=== PATIENT | male | born 1995 | race African-American/Black ===

== ENCOUNTER 2017-04-24 09:14 | Emergency (ER) | payer OTHER ==
[~2017-04-24] VITALS: Ht 182.9 cm; Wt 73.5 kg
[2017-04-24 09:24] VITALS: BP 122/69
[2017-04-24] MEDS ORDERED: IBUP200C15 PO (09:27)
--- NOTE | 2017-04-24 09:30 | NUR ---
Patient ambulated to bed 08.
--- NOTE | 2017-04-24 09:41 | NUR ---
21/M c/o lower back for about a week and a half. Denies any injury or trauma. Pt also c/o N/V for the past week. Pt states "It woke me up out of my sleep last night." Also reports diarrhea for the past two months on and off. No vomiting noted while in ED. AOX4, clear speech. Ambulatory with steady gait. Pt found lying supine in bed, no distress noted. VSS.
--- NOTE | 2017-04-24 09:52 | NUR ---
Patient being evaluated by Dr. Waldron at bedside.
[2017-04-24] MEDS ORDERED: NACL 0.9% 1,000 ML IV ONE (10:05)
[2017-04-24] MEDS ORDERED: ONDANSETRON 4 MG/2 ML VIAL IVP ONE (10:05)
[2017-04-24 10:41] LABS: HEMATOCRIT 42.5 % (36-52); HEMOGLOBIN 13.1 g/dL (12.0-18.0); MEAN CORPUSCULAR HEMOGLOBIN 22 pg (27-31); MEAN CORPUSCULAR HGB CONC 31 g/dL (33-37); MEAN CORPUSCULAR VOLUME 72 fL (80-94); PLATELET COUNT (AUTO) 145 K/uL (140-450); RED BLOOD CELL COUNT(AUTO) 5.89 MIL/uL (4.20-6.10); RED CELL DISTRIBUTION WIDTH 14.4 % (11.6-13.7); WHITE BLOOD COUNT (AUTO) 5.9 K/uL (4.8-10.8)
--- NOTE | 2017-04-24 10:59 | NUR ---
Patient appears to be resting comfortably in bed. VSS.
[2017-04-24 11:05] LABS: ANION GAP 8.3 (8-16); CALCIUM 8.5 mg/dL (8.5-10.1); CARBON DIOXIDE 29.6 mmol/L (21-32); CHLORIDE 107 mmol/L (98-107); CREATININE 1.1 mg/dL (0.7-1.3); GFR ARICAN-AMERICAN 107 mL/min (>90); GFR NON ARICAN-AMERICAN 88 mL/min (>90); GLUCOSE 85 mg/dL (74-106); POTASSIUM 3.9 mmol/L (3.5-5.1); SODIUM SERUM 141 mmol/L (136-145); UREA NITROGEN, BLOOD 10 mg/dL (7-18)
[2017-04-24 11:12] LABS: ALANINE AMINOTRANSFERASE 16 U/L (16-63); ALBUMIN 3.7 g/dL (3.4-5.0); ALKALINE PHOSPHATASE 49 U/L (46-116); AMYLASE 54 U/L (25-115); ASPARTATE AMINOTRANSFERASE 12 U/L (15-37); LIPASE 92 U/L (73-393); TOTAL BILIRUBIN 0.8 mg/dL (0.0-1.0); TOTAL PROTEIN, SERUM 7.2 g/dL (6.4-8.2)
[2017-04-24 11:17] LABS: EOSINOPHILS % (MANUAL) 2 % (0-4); LYMPHOCYTES % (MANUAL) 48 % (20-46); MONOCYTES % (MANUAL) 12 % (5-12); NEUTROPHILS % (MANUAL) 38 (43-65)
[2017-04-24 11:18] LABS: PLATELET ESTIMATE ADEQUATE
[2017-04-24 11:21] LABS: ALCOHOL, BLOOD < 3 mg/dL (<3)
--- NOTE | 2017-04-24 11:57 | NUR ---
[facility]
[2017-04-24 12:02] LABS: AMPHETAMINE, URINE NEG. ng/ml (NEG <=1000); BARBITURATE, URINE NEG. ng/ml (NEG <=200); BENZODIAZEPINE, URINE NEG. ng/mL (NEG <=200); CANNABINOID, URINE NEG. ng/mL (NEG <=50); COCAINE, URINE NEG. ng/mL (NEG <=300); OPIATE, URINE NEG. ng/mL (NEG <=2000); PHENCYCLIDINE SCREEN,URINE NEG. ng/mL (NEG <=25)
[2017-04-24 12:04] LABS: APPEARANCE,URINE CLOUDY (CLEAR); BILIRUBIN,URINE NEGATIVE (NEGATIVE); BLOOD, URINE NEGATIVE (NEGATIVE); COLOR,URINE YELLOW (YELLOW); LEUKOCYTE ESTERASE ,URINE NEGATIVE (NEGATIVE); NITRITE, URINE NEGATIVE (NEGATIVE); PROTEIN,URINE NEGATIVE (NEGATIVE); UGLUCOSE NEGATIVE (NEGATIVE)
[2017-04-24 12:24] LABS: RBC,URINE NONE SEEN /HPF (0-5); WBC,URINE NONE SEEN /HPF (0-5)
[2017-04-24 12:25] LABS: BACTERIA,URINE None Seen /HPF (None Seen); SQUAMOUS EPITHELIAL CELL,UR 0-3 (FEW) /LPF (0-3 (FEW)); URINE AMORPHOUS URATE 1+ /HPF (None Seen)
[2017-04-24] MEDS ORDERED: KETOROLAC 30 MG/ML VIAL IVP ONE (13:00)
--- NOTE | 2017-04-24 13:25 | NUR ---
IV removed, catheter intact and site benign. Applied folded 4x4 gauze and tape to stop bleeding.
[2017-04-24 13:27] VITALS: BP 109/74
== END 2017-04-24 13:27 | disposition home or self-care (01) ==
LOC: MED 09:14
DX: K52.9 Noninfective gastroenteritis and colitis, unspecified (principal)
CPT/HCPCS: 36415; 80053; 80305; 81001; 82150; 83690; 85025; 96361; 96374; 96375; 99284; G0482; J1885; J2405; J7030

== ENCOUNTER 2018-01-04 09:13 | Emergency (ER) | payer OTHER ==
[~2018-01-04] VITALS: Ht 185.4 cm; Wt 72.6 kg
[~2018-01-04 09:13] MED LIST: IBUP200C15 PO
[2018-01-04 09:15] VITALS: BP 126/93
--- NOTE | 2018-01-04 09:17 | NUR ---
PT BIB [facility] FOR PREBOOK
--- NOTE | 2018-01-04 09:20 | NUR ---
PATIENT DENIES PAIN/DISCOMFORT. BROUGHT IN BY [facility]. [facility] PREBOOK FOR DUI.DENIES HX:DENIES MEDS . DENIES N/V/D; SKIN IS PINK/WARM/DRY; AAOX4 WITH EVEN AND STEADY GAIT; LUNGS CLEAR BL; HR EVEN AND REGULAR; PT DENIES ANY FEVER, CP, SOB, OR COUGH AT THIS TIME; PATIENT STATES PAIN OF 0/10 AT THIS TIME; VSS;ER MD MADE AWARE OF PT STATUS.
[2018-01-04 09:50] VITALS: BP 126/93
--- NOTE | 2018-01-04 09:50 | NUR ---
Patient discharged with v/s stable. PT IS OK TO PRE-BOOK PER MD, Police with PT to car.
== END 2018-01-04 09:50 ==
LOC: MED 09:13
DX: Z02.89 Encounter for other administrative examinations (principal); Z79.899 Other long term (current) drug therapy
CPT/HCPCS: 99283

== ENCOUNTER 2018-10-17 21:36 | Emergency (ER) | payer OTHER ==
[~2018-10-17] VITALS: Ht 185.4 cm; Wt 74.4 kg
[2018-10-17 21:41] VITALS: BP 130/87
[2018-10-17] MEDS ORDERED: traMADol 50 MG TAB PO ONE (22:35)
[2018-10-17] MEDS ORDERED: PENICILLIN V POTASSIUM 250 MG TAB PO ONE (22:35)
[2018-10-17] MEDS ORDERED: IBUPROFEN 600 MG TAB PO ONE (22:35)
[2018-10-17 22:50] VITALS: BP 126/73
== END 2018-10-17 22:50 | disposition home or self-care (01) ==
LOC: MED 21:36
DX: K02.9 Dental caries, unspecified (principal); Z79.899 Other long term (current) drug therapy
CPT/HCPCS: 99284

== ENCOUNTER 2019-05-05 02:28 | Emergency (ER) | payer OTHER ==
[~2019-05-05] VITALS: Ht 188 cm; Wt 72.6 kg
--- NOTE | 2019-05-05 02:35 | NUR ---
PT AMBULATED TO BED
[2019-05-05 02:39] VITALS: BP 125/88
--- NOTE | 2019-05-05 02:47 | NUR ---
PT C/O SORE THROAT X2 DAYS. PAIN LEVEL 6/10, HURTS WHEN SWALLOWING/EATING/DRINKING. NO FEVER PRESENT. PT HAS OCCASIONAL PRODUCTIVE COUGH WITH MUCOUS. NO MEDICAL HX. SAFETY MEASURES IN PLACE. WAITING FOR ERMD TO EVALUATE PT.
[2019-05-05] MEDS ORDERED: AMOXICILLIN 500 MG CAP PO ONE (02:55)
[2019-05-05] MEDS ORDERED: LIDOCAINE VISCOUS 2% 20 ML UDC PO ONE (02:55)
[2019-05-05 03:25] VITALS: BP 125/88
--- NOTE | 2019-05-05 03:25 | NUR ---
Patient discharged with v/s stable. Written and verbal after care instructions given and explained. Pt was educated to take full dose of antibiotics as prescribed. All questions addressed prior to discharge. ID band removed. Rx of amoxicillin, lidocaine, and motrin was given. Patient educated on indication of medication including possible reaction and side effects. Opportunity to ask questions provided and answered.
== END 2019-05-05 03:25 | disposition home or self-care (01) ==
LOC: MED 02:28
DX: J02.8 Acute pharyngitis due to other specified organisms (principal); B96.89 Other specified bacterial agents as the cause of diseases classified elsewhere; R03.0 Elevated blood-pressure reading, without diagnosis of hypertension; Z79.899 Other long term (current) drug therapy
CPT/HCPCS: 99283

== ENCOUNTER 2022-11-24 11:04 | Emergency (ER) | payer MEDICAID, OTHER ==
[~2022-11-24] VITALS: Ht 180.3 cm; Wt 78.0 kg
[2022-11-24 11:11] VITALS: BP 141/87
--- NOTE | 2022-11-24 11:17 | NUR ---
Satish taylor in [facility] - 11/24/22 at 1119 by [email or web address] PT AMB TO BED 4.
--- NOTE | 2022-11-24 11:19 | NUR ---
PT AMB TO BED 2.
--- NOTE | 2022-11-24 11:20 | NUR ---
here for right wrist swelling and pain, had a fall whie skateboarding yesterday, right wrist swelling, n/c intact
[2022-11-24] MEDS ORDERED: IBUP100S26 PO (12:53)
[2022-11-24] MEDS ORDERED: NAPR-54 PO (13:16)
--- NOTE | 2022-11-24 13:19 | NUR ---
thumb spica applied to R wrist, thumb zander wrap x 1. + cms. pt tolerated splint.
--- NOTE | 2022-11-24 13:30 | NUR ---
SLING APPLIED TO R UPPER ARM. PT STATED RELIEF WITH SLING APPLIED. + CMS AFTER APPLICATION.
[2022-11-24 13:33] VITALS: BP 141/87
--- NOTE | 2022-11-24 13:33 | NUR ---
Patient discharged with v/s stable. Written and verbal after care instructions given and explained. Patient alert, oriented and verbalized understanding of instructions. Ambulatory with steady gait. All questions addressed prior to discharge. ID band removed. Patient advised to follow up with PMD. Rx of naproxen (sent) given. Patient educated on indication of medication including possible reaction and side effects. Opportunity to ask questions provided and answered. work note given, copy of imaging given
== END 2022-11-24 13:33 | disposition home or self-care (01) ==
LOC: MED 11:04
DX: S62.001A Unspecified fracture of navicular [scaphoid] bone of right wrist, initial encounter for closed fracture (principal); W18.30XA Fall on same level, unspecified, initial encounter; Y93.51 Activity, roller skating (inline) and skateboarding; Y92.89 Other specified places as the place of occurrence of the external cause; Y99.8 Other external cause status
CPT/HCPCS: 29125; 73090; 73110; 99284; Q0092

== ENCOUNTER 2023-09-23 14:14 | Emergency (ER) | payer SELFPAY ==
[~2023-09-23] VITALS: Ht 175.3 cm; Wt 72.6 kg
[~2023-09-23 14:14] MED LIST changes: +NAPR-54 PO
[2023-09-23 15:26] VITALS: BP 129/81; PULSE 106; RESP 20; TEMP 101; O2SAT 97
[2023-09-23] MEDS ORDERED: ACETAMINOPHEN EXTRA STRENGTH 500 MG TAB PO ONE (17:25)
[2023-09-23] MEDS ORDERED: IBUP-2218 PO (17:38)
[2023-09-23] MEDS ORDERED: PROM118S5 PO (17:38)
[2023-09-23 18:31] LABS: FLU A ANTIGEN POSITIVE (NEGATIVE); FLU B ANTIGEN NEGATIVE (NEGATIVE)
[2023-09-23] MEDS ORDERED: TAM75 PO (18:43)
[2023-09-23] MEDS ORDERED: ONDA-188 PO (18:43)
== END 2023-09-23 17:57 | disposition home or self-care (01) ==
LOC: MED 14:14
DX: B34.9 Viral infection, unspecified (principal); Z20.822 Contact with and (suspected) exposure to COVID-19; Z79.899 Other long term (current) drug therapy; Z79.1 Long term (current) use of non-steroidal anti-inflammatories (NSAID)
CPT/HCPCS: 99283